=== PATIENT | female | born 1960 | race Caucasian/White ===

== ENCOUNTER 2017-09-04 17:32 | Emergency (ER) | payer OTHER ==
[~2017-09-04] VITALS: Ht 154.9 cm; Wt 61.7 kg
[~2017-09-04 17:32] MED LIST: ANTIVERT25 MG PO; CEPHALEXIN 500500 M3 PO; DOXYCYCLINE 10100 MG PO; FLONASE 0.05%50 MCG NASAL; LEVAQUIN 750 M750 MG PO; LIDODERM 5%1 PATC1 TRANSDERM; MEDROLDOSEPACK PO; MOBIC7.5 MG PO; TESSALON PERLE100 MG PO; VENTOLIN HFA 1818 GM INH; ZYRTEC10 MG PO
[2017-09-04] MEDS ORDERED: SYNTHROID100 MCG (17:41)
[2017-09-04] MEDS ORDERED: ZOLOFT50 MG (17:41)
[2017-09-04] MEDS ORDERED: TRAZODONE 150150 M1 (17:41)
[2017-09-04] MEDS ORDERED: BACITRACIN3.5 GM TOP (17:57)
[2017-09-04] MEDS ORDERED: NORCO 5-325 TA1 EACH PO (17:57)
[2017-09-04 18:17] VITALS: BP 159/93
== END 2017-09-04 18:19 | disposition home or self-care (01) ==
LOC: M.ERS 17:32
DX: T23.241A Burn of second degree of multiple right fingers (nail), including thumb, initial encounter (principal); F32.9 Major depressive disorder, single episode, unspecified; F41.9 Anxiety disorder, unspecified; K21.9 Gastro-esophageal reflux disease without esophagitis; I10 Essential (primary) hypertension; E03.9 Hypothyroidism, unspecified; Z98.890 Other specified postprocedural states; X10.2XXA Contact with fats and cooking oils, initial encounter; Y93.89 Activity, other specified; Y92.89 Other specified places as the place of occurrence of the external cause; Y99.0 Civilian activity done for income or pay

== ENCOUNTER 2019-05-12 18:42 | Emergency (ER) | payer MEDICAID ==
[~2019-05-12] VITALS: Ht 154.9 cm; Wt 59.9 kg
[~2019-05-12 18:42] MED LIST changes: +BACITRACIN3.5 GM TOP; +NORCO 5-325 TA1 EACH PO; +SYNTHROID100 MCG; +TRAZODONE 150150 M1; +ZOLOFT50 MG
[2019-05-12 18:46] VITALS: BP 149/106
[2019-05-12] MEDS ORDERED: NEURONTIN100 MG PO (18:49)
[2019-05-12] MEDS ORDERED: CHILDREN'S ZYRT10 M1 PO (18:49)
[2019-05-12] MEDS ORDERED: ZANAFLEX2 M1 PO (18:49)
[2019-05-12] MEDS ORDERED: ZANTAC 150MG T150 M1 PO (18:49)
== END 2019-05-12 21:30 | disposition left against medical advice (07) ==
LOC: M.ERS 18:42
DX: Z53.21 Procedure and treatment not carried out due to patient leaving prior to being seen by health care provider (principal)